=== PATIENT | male | born 1975 | race Caucasian/White ===

== ENCOUNTER 2016-09-23 11:25 | Inpatient (IN) | payer MEDICAID ==
[~2016-09-23] VITALS: Ht 175.3 cm; Wt 59.4 kg
[2016-09-23 11:38] VITALS: BP 132/95
--- NOTE | 2016-09-23 20:09 | NUR ---
TO ER OF1
--- NOTE | 2016-09-23 21:09 | NUR ---
PT FEELS PAIN AT LEFT RIB WHEN BREATH.CURRENT SMOKE,LAST DRINK OF BEER WAS 2 DAYS AGO.PT WITH HX SEIZURE. VOMITING BLOOD AT THE LOOBY
--- NOTE | 2016-09-23 21:13 | NUR ---
Patient being evaluated by DR. PEARL at bedside.
[2016-09-23] MEDS ORDERED: NACL 0.9% 1,000 ML IV ONE (21:50)
--- NOTE | 2016-09-23 22:14 | NUR ---
TAKEN FOR CT SCAN
[2016-09-23] MEDS ORDERED: MORPHINE SULFATE 2 MG/ML SYR IVP ONE (23:20)
[2016-09-23] MEDS ORDERED: ONDANSETRON 4 MG/2 ML VIAL IVP ONE (23:20)
[2016-09-24] MEDS ORDERED: LORazepam 2 MG/ML VIAL IVP PRN (00:20)
[2016-09-24] MEDS ORDERED: MORPHINE SULFATE 2 MG/ML SYR IVP PRN (00:20)
[2016-09-24] MEDS ORDERED: HYDROcodone/APAP 5/325 MG 1 TAB TAB PO PRN (00:20)
[2016-09-24] MEDS ORDERED: ONDANSETRON 4 MG/2 ML VIAL IVP PRN (00:20)
--- NOTE | 2016-09-24 00:31 | NUR ---
Patient will be admitted to care of DR. BUSH. Admited to TELEMETRY. Will go to room 109A. Belongings list completed. Report to JOHN MIDDLETON.
[2016-09-24 00:50] VITALS: BP 123/85
--- NOTE | 2016-09-24 00:50 | NUR ---
PT ARRIVED ON UNIT IN STABLE CONDITION. NO SOB, NO SIGNS OF DISTRESS. VS STABLE ON ROOM AIR. PT IS AOX4, AMBULATORY. PT SPEAKS [place], SISTER AT BEDSIDE. SKIN IS INTACT. PT DENIES PAIN AT THIS TIME. ORIENTED PT TO ROOM AND UNIT. IV TO LT AC 20G PATENT, ASYMPTOMATIC, INTACT, SALINE LOCKED. PLAN OF CARE DISCUSSED WITH PT AND FAMILY. SAFETY MEASURES IN PLACE. CALL LIGHT WITHIN REACH. WILL CONTINUE TO MONITOR.
[2016-09-24] MEDS ORDERED: PNEUMOCOCCAL VACCINE 23 MCG/0.5 ML VIAL IMVAC PRN (02:00)
--- NOTE | 2016-09-24 02:44 | NUR ---
PT C/O ABD PAIN. MEDICATED PER MD ORDER. PT TOLERATED WELL. NO SOB, NO SIGNS OF DISTRESS. IV SITE ASYMPTOMATIC, INTACT, PATENT, SALINE LOCKED. PLAN OF CARE DISCUSSED WITH PT. SAFETY MEASURES IN PLACE. CALL LIGHT WITHIN REACH. WILL CONTINUE TO MONITOR.
[2016-09-24 04:00] VITALS: BP 98/63
--- NOTE | 2016-09-24 04:05 | NUR ---
VS STABLE ON ROOM AIR. NO SOB, NO SIGNS OF DISTRESS. IV SITE ASYMPTOMATIC, INTACT, SALINE LOCKED. PT DENIES PAIN AT THIS TIME. PLAN OF CARE DISCUSSED WITH PT. SAFETY MEASURES IN PLACE. CALL LIGHT WITHIN REACH. WILL CONTINUE TO MONITOR.
--- NOTE | 2016-09-24 07:25 | NUR ---
ENDORSED PT IN STABLE CONDITION TO EMI CARBALLO. ALL NEEDS HAVE BEEN MET AT THIS TIME.
--- NOTE | 2016-09-24 07:26 | NUR ---
RECEIVED REPORT FROM WEIGHER ALLOY NURSE AT BEDSIDE. PT IS AWAKE AND ALERT AND ORIENTED. INTRODUCED MYSELF AND UPDATED THE BOARD. SPEAKS LITTLE TURKISH, ABLE TO COMMUNICATE HIS NEEDS. PT C/O PAIN IN UPPER AND LOWER QUADRANTS OF ABDOMEN, SORE TO TOUCH, REFUSED PAIN MEDS AT THIS TIME. DENIES VOMITING OR NAUSEA. IV L AC 20 G SALINE LOCKED. EXPLAINED PLANS FOR TODAY. ANSWERED ALL QUESTIONS. MET ALL NEEDS AT THIS TIME. ALL SAFETY MEASURES IN PLACE. VS WNL. WILL CONTINUE TO MONITOR PT.
--- NOTE | 2016-09-24 07:55 | NUR ---
PATIENT HAS BEEN SCREENED AND CATEGORIZED HIGH NUTRITION RISK. PATIENT WILL BE SEEN WITHIN 1-2 DAYS OF ADMISSION. 09/24/16-09/25/[address]
--- NOTE | 2016-09-24 08:15 | NUR ---
ALEKS DEL VALLE ASSESSING PT.
[2016-09-24] MEDS: PANTOPRAZOLE 40 MG INJ VIAL IVP SCH ×2 (08:35→21:32)
[2016-09-24] MEDS ORDERED: ZOLPIDEM 5 MG TAB PO PRN (08:45)
[2016-09-24] MEDS ORDERED: LORazepam 1 MG TAB PO PRN (08:45)
[2016-09-24] MEDS ORDERED: ACETAMINOPHEN 325 MG TAB PO PRN (08:45)
[2016-09-24] MEDS ORDERED: LORazepam 2 MG/ML VIAL IM/IVP PRN (08:55)
[2016-09-24 09:00] VITALS: BP 115/74
[2016-09-24] MEDS ORDERED: PANTOPRAZOLE 40 MG INJ VIAL IVP SCH (09:00)
--- NOTE | 2016-09-24 09:00 | NUR ---
PT PAPER GOODS MACHINE SET UP OPERATOR IS HERE. SHE SPEAKS [place] WELL. SHE BROUGHT PAPERWORK/MEDICAL RECORDS FOR PT FROM ANOTHER HOSPITAL WHERE HE WAS HOSPITALIZED IN A DIFFERENT STATE ABOUT A YEAR AGO. WILL REVIEW AND RETURN TO PT.
[2016-09-24] MEDS: NACL 0.9% 1,000 ML IV SCH ×2 (09:20→21:33)
--- NOTE | 2016-09-24 09:30 | NUR ---
US HERE TO DO ULTRASOUND OF THE TESTES.
[2016-09-24] MEDS ORDERED: levETIRAcetam 500 MG in NACL 0.9% 100 ML IV SCH ×2 (10:00→21:00)
[2016-09-24] MEDS ORDERED: POTASSIUM CHLORIDE 20 MEQ, LIDOCAINE 1% 25 MG in NACL 0.9% 250 ML IV SCH (10:00)
--- NOTE | 2016-09-24 10:10 | NUR ---
CALLED SECURITY TO SET UP THE BAN ON PT'S EX AND BOYFRIEND.
[2016-09-24 12:00] VITALS: BP 109/71
[2016-09-24] MEDS ORDERED: MIDAZOLAM 2 MG/2 ML VIAL ONE (12:11)
[2016-09-24] MEDS ORDERED: diphenhydrAMINE 50 MG/ML VIAL ONE (12:11)
[2016-09-24] MEDS ORDERED: fentaNYL 0.05 MG/ML VIAL ONE (12:11)
--- NOTE | 2016-09-24 12:15 | NUR ---
OR NURSES CAME TO DELIVERY MERCHANDISER PT FOR EGD. SALINE LOCKED THE IV.
[2016-09-24] MEDS ORDERED: MIDAZOLAM 2 MG/2 ML VIAL IVP ONE (13:00)
[2016-09-24] MEDS ORDERED: fentaNYL 0.05 MG/ML VIAL IVP ONE (13:00)
--- NOTE | 2016-09-24 13:30 | NUR ---
PT CAME BACK FROM EGD. TOOK VITAL SIGNS. PROVIDED JUICE AND JELLO TO PATIENT. PT TOLERATED WELL. WILL CONTINUE TO MONITOR PT.
--- NOTE | 2016-09-24 15:00 | NUR ---
FAMILY VISITING. PT ALERT ORIENTED, DENIED PAIN. NO SIGNS OF DISTRESS. ASKED FOR MORE JUICE AND WATER. MET ALL NEEDS AT THIS TIME. CALL LIGHT WITHIN REACH. WILL CONTINUE TO MONITOR.
[2016-09-24 16:00] VITALS: BP 117/84
--- NOTE | 2016-09-24 17:22 | NUR ---
TRANSFERRED PT FROM TELE TO [facility] PER MD ORDER. REMOVED TELE BOX. WILL CONTINUE TO MONITOR.
--- NOTE | 2016-09-24 19:20 | NUR ---
ENDORSED CARE OF PT TO VAT CLEANER NURSE IN STABLE CONDITION. PT ALERT RESTING IN BED.
--- NOTE | 2016-09-24 19:34 | NUR ---
RECEIVED FROM AM RN IN BED SLEEPING. REFUSED TO WAKE UP AT THIS TIME. MALDIVIAN SPEAKING ONLY AND DX. OF HEMATEMESIS. NO NOTED VOMITING OF BLOOD THE AM SHIFT. CALL LIGHT WITH IN REACH . IVF SITE TO LAC#20 INTACT AND NO INFILTRATION. IVF OF NS AT 80 ML / H.
[2016-09-24] MEDS: CLARITHROMYCIN 500 MG TAB PO SCH (21:32)
[2016-09-24] MEDS: AMOXICILLIN 500 MG CAP PO SCH (21:33)
[2016-09-24] MEDS: levETIRAcetam 500 MG TAB PO SCH (21:35)
--- NOTE | 2016-09-24 23:02 | NUR ---
PT. BEEN SLEEPING WELL AFTER P.O. MEDS GIVEN . NO COMPLAINTS DONE. CALL LIGHT WITH IN REACH.
[2016-09-24 23:55] VITALS: BP 114/80
[2016-09-25 00:06] VITALS: BP 114/80
--- NOTE | 2016-09-25 01:42 | NUR ---
SLEEPING. NO RESTLESSNESS. PT. IS ABLE TO USE CALL LIGHT FOR HELP.
--- NOTE | 2016-09-25 03:54 | NUR ---
PT. SLEEPING GOOD. NO NOTED SEIZURES. CALL LIGHT WITH IN REACH. NO SOB. NO PAIN COMPLAINTS DONE.
[2016-09-25] MEDS: LORazepam 1 MG TAB PO SCH ×3 (04:21→20:31)
--- NOTE | 2016-09-25 07:28 | NUR ---
PT. STILL SLEEPING. WOKE PT. UP TO INTRODUCE TO THE NEXT RN FOR CONTINUITY OF CARE. ABLE TO VERBALIZE NEEDS WELL. NO SEIZURE THIS SHIFT. NO HEMATEMESIS.
[2016-09-25 08:00] VITALS: BP 125/75
[2016-09-25] MEDS: levETIRAcetam 500 MG TAB PO SCH ×2 (09:00→20:31)
[2016-09-25] MEDS: AMOXICILLIN 500 MG CAP PO SCH ×2 (09:00→20:31)
[2016-09-25] MEDS: PANTOPRAZOLE 40 MG INJ VIAL IVP SCH ×2 (09:00→20:30)
[2016-09-25] MEDS: THIAMINE 100 MG TAB PO SCH (09:00)
[2016-09-25] MEDS: FOLIC ACID 1 MG TAB PO SCH (09:00)
[2016-09-25] MEDS: CLARITHROMYCIN 500 MG TAB PO SCH ×2 (09:00→20:31)
[2016-09-25] MEDS: NACL 0.9% 1,000 ML IV SCH ×2 (10:42→22:15)
--- NOTE | 2016-09-25 11:37 | NUR ---
09/25/16 RD INITIAL ASSESSMENT COMPLETED PLEASE REFER TO NUTRITION ASSESSMENT UNDER CARE ACTIVITY FOR ESTIMATED NUTRITIONAL NEEDS. RD RECOMMENDATIONS: 1. CONTINUE FULL LIQUID DIET TOLERATED PER MD 2. WHEN MEDICALLY APPROPRIATE CONSIDER ADVANCE DIET TOLERATED TO CARDIAC 3. RD WILL F/U 3-5 DAYS; MODERATE RISK. YUN PRIETO RD
[2016-09-25 16:00] VITALS: BP 118/78
[2016-09-25] MEDS ORDERED: MAG SULF 2000 MG/WATER PREMIX 100 ML IV SCH (16:00)
--- NOTE | 2016-09-25 18:48 | NUR ---
NO C/O PAIN ALL DAY.VSS.IV INFUSING ORDERED.TAKES DIET WELL.VOIDS PER URINAL MAG REPLACED WITH MAG RIDER.CONTINUE TO MONITOR
--- NOTE | 2016-09-25 19:20 | NUR ---
RECEIVED REPORT FROM DAY SHIFT NURSE. PT IS AAOX4, DENIES PAIN. ON ROOM AIR, NO S/S OF RESPIRATORY DISTRESS/DISCOMFORT NOTED. IV SITE IS PATENT AND INTACT. PLAN OF CARE DISCUSSED, VERBALIZED UNDERSTANDING. SAFETY MEASURES CHECKED, CALL LIGHT WITHIN REACH. WILL CONTINUE TO MONITOR.
--- NOTE | 2016-09-25 20:35 | NUR ---
DUE MEDS GIVEN. PROVIDED DRUG INFO BENEFITS AND S/E, VERBALIZED UNDERSTANDING. PT TOLERATED WELL.
[2016-09-26] VITALS: BP 108/74
--- NOTE | 2016-09-26 00:08 | NUR ---
V/S CHECKED AND STABLE. DENIES PAIN. NO SOB NOTED.
--- NOTE | 2016-09-26 02:16 | NUR ---
EYES CLOSED, RESTING QUIETLY, BREATHING EVENLY AND UNLABORED. NO SOB NOTED.
[2016-09-26] MEDS: LORazepam 1 MG TAB PO SCH (04:20)
--- NOTE | 2016-09-26 04:27 | NUR ---
PT AWAKE. AMBULATED TO USE URINAL. DENIES PAIN.
--- NOTE | 2016-09-26 06:03 | NUR ---
EYES CLOSED, RESTING QUIETLY, BREATHING EVEN AND UNLABORED. CALL LIGHT WITHIN REACH.
--- NOTE | 2016-09-26 07:05 | NUR ---
ENDORSED REPORT TO DAY SHIFT NURSE FOR CONTINUITY OF CARE. PT IN STABLE CONDITION.
--- NOTE | 2016-09-26 07:30 | NUR ---
RECEIVED ON BED AAOX4. NO SOB NOTED. NO C/O PAIN AT THIS TIME. IV TO LT AC PATENT AND INTACT. CHEST CLEAR. ABDOMEN SOFT, BOWEL SOUNDS PRESENT. NO EDEMA NOTED. INSTRUCTED PT TO CALL FOR ASSISTANCE, CALL LIGHT WITHIN REACH. PT VERBALIZED UNDERSTANDING.
[2016-09-26 08:00] VITALS: BP 117/70
--- NOTE | 2016-09-26 08:50 | NUR ---
PT ATE 100% FOR BREAKFAST.
[2016-09-26] MEDS ORDERED: NATURE'S BLEND F1 MG PO (09:07)
[2016-09-26] MEDS ORDERED: ATIVAN1 MG PO (09:07)
[2016-09-26] MEDS ORDERED: BIAXIN500 MG PO (09:07)
[2016-09-26] MEDS ORDERED: B-1100 M1 PO (09:07)
[2016-09-26] MEDS ORDERED: PROTONIX40 MG PO (09:07)
[2016-09-26] MEDS ORDERED: AMOXICILLIN500 MG PO (09:07)
[2016-09-26] MEDS ORDERED: KEPPRA500 MG PO (09:07)
[2016-09-26] MEDS: FOLIC ACID 1 MG TAB PO SCH (09:56)
[2016-09-26] MEDS: levETIRAcetam 500 MG TAB PO SCH (09:56)
[2016-09-26] MEDS: THIAMINE 100 MG TAB PO SCH (09:56)
[2016-09-26] MEDS: AMOXICILLIN 500 MG CAP PO SCH (09:56)
[2016-09-26] MEDS: PANTOPRAZOLE 40 MG INJ VIAL IVP SCH (09:57)
[2016-09-26] MEDS: CLARITHROMYCIN 500 MG TAB PO SCH (09:57)
--- NOTE | 2016-09-26 10:20 | NUR ---
PT AMBULATING AROUND THE ROOM .ACTIVITY TOLERATED WELL.
--- NOTE | 2016-09-26 12:30 | NUR ---
PT CONSUMED 100% ON LUNCH SERVED.
--- NOTE | 2016-09-26 13:30 | NUR ---
DISCAHRGE INSTRUCTIONS AND PRESCRIPTIONS GIVEN TO PT WHICH VERBALIZED FULL UNDERSTANDING OF THE INSTRUCTIONS GIVEN AND THE NEED TO FOLLOW UP WITH DR. ANAND'S [facility]. INFORMATION GIVEN WITH D/C PAPERS. ARM BANDS AND IV REMOVED, CANNULA TIP INTACT.
--- NOTE | 2016-09-26 13:55 | NUR ---
PT WHEELED OUT IN STABLE CONDITION. AAOX4. AMBULATORY. NO COMPLAINTS MADE. DISCHARGE TO HOME WITH SISTER.
== END 2016-09-26 13:55 | disposition home or self-care (01) | DRG 243 ==
LOC: MED 11:28 → MTU 09-24 00:20
PROVIDERS: ADMIT Family Medicine; ATTEND Family Medicine
PROC: 0DB68ZX Excision of Stomach, Via Natural or Artificial Opening Endoscopic, Diagnostic (ICD-10-PCS; principal; 2016-09-25)
DX: K21.9 Gastro-esophageal reflux disease without esophagitis (principal); N17.0 Acute kidney failure with tubular necrosis; E43 Unspecified severe protein-calorie malnutrition; E87.1 Hypo-osmolality and hyponatremia; G40.909 Epilepsy, unspecified, not intractable, without status epilepticus; E87.6 Hypokalemia; E78.5 Hyperlipidemia, unspecified; B96.81 Helicobacter pylori [H. pylori] as the cause of diseases classified elsewhere; R74.0 Nonspecific elevation of levels of transaminase and lactic acid dehydrogenase [LDH]; K44.9 Diaphragmatic hernia without obstruction or gangrene; K70.9 Alcoholic liver disease, unspecified; Z56.0 Unemployment, unspecified; Z72.0 Tobacco use; Q63.1 Lobulated, fused and horseshoe kidney; Z68.1 Body mass index [BMI] 19.9 or less, adult